=== PATIENT | female | born 1985 | race Caucasian/White ===

== ENCOUNTER 2018-06-17 16:30 | Emergency (ER) | payer BC ==
[~2018-06-17] VITALS: Ht 160 cm; Wt 75.9 kg
[2018-06-17 16:37] VITALS: TEMP 98.8
[2018-06-17] MEDS ORDERED: NEURONTIN300 MG/CAP PO (16:46)
[2018-06-17] MEDS ORDERED: ABILIFY 10MG TA10 MG PO (16:46)
[2018-06-17] MEDS ORDERED: CELEXA40 MG PO (16:46)
[2018-06-17] MEDS ORDERED: MAGNEBIND 300 21 TAB PO (16:47)
[2018-06-17] MEDS ORDERED: NORA-BE0.35 MG PO (16:47)
[2018-06-17] MEDS ORDERED: NATURAL IRON65 MG (16:47)
[2018-06-17] MEDS ORDERED: KLONOPIN 0.5MG0.5 MG PO (16:48)
[2018-06-17] MEDS ORDERED: KLONOPIN 1MG1 MG PO (18:15)
[2018-06-17 18:25] VITALS: BP 127/96; PULSE 77
== END 2018-06-17 18:25 | disposition home or self-care (01) ==
LOC: COL.ER 16:30
DX: T43.595A Adverse effect of other antipsychotics and neuroleptics, initial encounter (principal); G25.71 Drug induced akathisia; G24.01 Drug induced subacute dyskinesia; F41.9 Anxiety disorder, unspecified; F32.9 Major depressive disorder, single episode, unspecified; K58.9 Irritable bowel syndrome, unspecified; F12.90 Cannabis use, unspecified, uncomplicated
CPT/HCPCS: J1200